=== PATIENT | male | born 1955 ===

== ENCOUNTER 2018-11-22 13:25 | Outpatient (CLI) | payer MEDICAID | END 2018-11-22 13:26 | disposition home or self-care (01) | LOC: C.RADIC 13:25 ==

== ENCOUNTER 2018-11-29 10:34 | Outpatient (CLI) | payer MEDICAID | END 2018-11-29 10:35 | disposition home or self-care (01) | LOC: C.PAT 10:34 | DX: K40.90 Unilateral inguinal hernia, without obstruction or gangrene, not specified as recurrent (principal) ==

== ENCOUNTER 2018-12-07 05:48 | Day surgery (SDC) | payer MEDICAID ==
[2018-12-07 06:35] VITALS: BMI 28.5
[2018-12-07] MEDS ORDERED: Bupivacaine HCl 0.25% PF (10 ml) Inj ONE (07:29)
[2018-12-07] MEDS ORDERED: Lidocaine/Epinephrine 1% 1:100000 10 ML IJ ONE (07:29)
[2018-12-07] MEDS ORDERED: ceFAZolin 1 gm in NS 2 GM/200 ML BAG IVPB ONE (07:30)
[2018-12-07] MEDS ORDERED: Succinylcholine Chloride 20 mg/ml Syr (5 ml) IV ONE (07:56)
[2018-12-07] MEDS ORDERED: Rocuronium 10 mg/ml (5 ml) ONE ×2 (07:56→09:21)
[2018-12-07] MEDS ORDERED: Midazolam 2 MG/2 ML VIAL ONE (07:57)
[2018-12-07] MEDS ORDERED: Propofol 10 mg/ml Inj (20 ML) ONE (07:58)
[2018-12-07] MEDS ORDERED: ePHEDrine 50 mg/ml Inj ONE (08:13)
[2018-12-07] MEDS ORDERED: Phenylephrine 10 mg/ml Inj ONE (08:25)
[2018-12-07] MEDS: Sodium Chloride 0.9% 40 ML IV ONE ×2 (08:32→10:02)
[2018-12-07] MEDS: Bupivacaine Liposomal Inj 20 ml INJ ONE ×2 (08:33→10:02)
[2018-12-07] MEDS ORDERED: Neostigmine 1:1000 (1 mg/ml) Inj ONE (10:19)
[2018-12-07] MEDS ORDERED: HYDROmorphone 0.5 mg/0.5 ml ISec IVP PRN (10:42)
--- NOTE | 2018-12-07 10:45 | PCM.SURG1 ---
Surgeon's Initial Post Op Note - Surgeon's Notes Surgeon: Dr. Bedoya Dessert Cup Machine Feeder: Jennie PGY2; [facility] Type of Anesthesia: General Endo, Block Regional, Local Anesthesia Administered By: Dr. Garcia Pre-Operative Diagnosis: Bilateral Inguinal Hernia, Umbilical Hernia Operative Findings: See operative report Post-Operative Diagnosis: Same Operation Performed: Robot-assisted Bilateral Inguinal Hernia Repair with mesh. Transversus Abdominus Plane Block. Open Umbilical Hernia repair with primary closure. Specimen/Specimens Removed: Cord Lipoma. Umbilical Hernia stalk Estimated Blood Loss: EBL {In ML}: 10 Blood Products Given: N/A Drains Used: No Drains Post-Op Condition: Good Date of Surgery/Procedure: 12/07/18 Time of Surgery/Procedure: 10:45
[2018-12-07 12:14] VITALS: TEMP 97.7; O2SAT 97
[2018-12-07 12:59] VITALS: BP 147/82; PULSE 80; RESP 18
--- NOTE | 2018-12-07 22:14 | OP ---
PROCEDURE DATE: 12/07/2018 PREOPERATIVE DIAGNOSES: 1. Bilateral inguinal hernia. 2. Lower abdominal pain. 3. Umbilical hernia. POSTOPERATIVE DIAGNOSES: 1. Large bilateral inguinal hernia containing large lipoma of the cord. 2. Umbilical hernia containing preperitoneal flat. 3. Extensive preperitoneal adhesion due to previous inflammation. PROCEDURE DONE: 1. Robotic bilateral inguinal hernia repair with mesh. 2. Robotic excision of the lipoma of the cord bilaterally. 3. Extensive adhesiolysis in the preperitoneal space due to previous inflammation. 4. Open umbilical hernia repair with mesh. 5. Laparoscopic bilateral transverse abdominis plane block placement. SURGEON: Manas Bedoya MD CONDUCTOR ORCHESTRA: SHONDA Mejia TYPE OF ANESTHESIA: General endotracheal tube. ESTIMATED BLOOD LOSS: Around 10 mL. DRAINS: None. PATHOLOGY: Large lipoma of the cord was sent to pathology and umbilical hernial sac and content were sent to the pathology. COMPLICATIONS: None. INTRAOPERATIVE FINDINGS: The patient had a large lipoma of the spermatic cord and the patient also had extensive adhesions in the space of Retzius and preperitoneal space and it took unusable amount of time due to the dissection due to previous inflammation and it took approximately 30 to 40 minutes extra for the routine procedure. After complete adhesiolysis, the procedure was completed. DESCRIPTION OF PROCEDURE: On intraoperative steps, this 63-year-old male was diagnosed with bilateral inguinal hernia and the patient also had morbid obesity and the patient was consented for robotic bilateral inguinal hernia repair with mesh. Brought to the OR, placed supine on the operating table. After induction of the anesthesia, the abdomen was prepped and draped in the usual sterile fashion. Supraumbilical transverse incision was made using open technique. Peritoneal cavity was entered and Pneumo was created. Another three 8 mm port was placed in the upper abdomen, the robot was brought in. Camera arm as well as arm-1 and arm-2 were docked and peritoneum was dissected in the midline as well as from the left to right ASIS and the dissection carried down up to the space of Retzius. The patient was found to extensive adhesions due to unknown previous inflammation and the adhesiolysis was done and now the right side peritoneal reflection was dissected. The vas deferens and the spermatic cord was identified. The patient had a large lipoma of the cord approximately 15 x 20 cm size and the inferior dissection was done up to the pelvic brim and medially the patient also had extensive adhesions in the space of the Retzius and adhesiolysis was done and proper hemostasis was achieved. Now a similar dissection was done on the left side and the peritoneal reflection was dissected off the abdominal wall. Vas deferens and the spermatic cord vessels were identified and large hernial sac and content were reduced there in the peritoneal cavity. The patient also had large lipoma of the cord approximately 15 x 20 cm size and that was excised and inferior dissection was done to the pelvic brim. Medially, the patient also had extensive adhesion due to previous inflammation of unknown origin and after the right and left anatomical mesh was placed, both mesh was placed properly and the peritoneum was sutured with 0 Vicryl as well as 3-0 PDS continuous suture. The umbilical hernia was dissected and the hernial content and sac were sent off the table for the pathology. The defect was closed primarily with multiple Prolene interrupted sutures and before umbilical hernia the bilateral TAP block was given. The 30:30 mL of Exparel with saline was injected into the transverse abdominis muscle plane area and after proper TAP block, all the ports were taken out under vision. Pneumo was deflated. The umbilical wound site was also closed in two layers, subcutaneous with 2-0 Vicryl, skin with 4-0 Monocryl and dry sterile dressing was applied. The patient tolerated the procedure well. Count of instrument and gauze was correct. There were no apparent complications. The patient was extubated in the OR and sent to the postanesthesia care unit in stable condition. Manas Bedoya MD
== END 2018-12-07 13:00 | disposition home or self-care (01) ==
LOC: C.SDS 05:48
PROVIDERS: ATTEND Surgery Surgical Critical Care
DX: K40.20 Bilateral inguinal hernia, without obstruction or gangrene, not specified as recurrent (principal); D17.6 Benign lipomatous neoplasm of spermatic cord; K42.9 Umbilical hernia without obstruction or gangrene; E66.01 Morbid (severe) obesity due to excess calories; I10 Essential (primary) hypertension; Z87.891 Personal history of nicotine dependence
CPT/HCPCS: 49650; 49652; 88302; 88304; C1781; J0690; J1170; J2001; J2250; J2370; J2405; J2704; J2710; J3010